=== PATIENT | female | born 1975 | race Caucasian/White ===

== ENCOUNTER 2020-04-22 10:09 | Emergency (ER) | payer OTHER, SELFPAY ==
[2020-04-22 10:25] VITALS: BP 149/73; PULSE 64; RESP 16; TEMP 37.1; O2SAT 99
--- NOTE | 2020-04-22 10:30 | ED.SKABFB ---
HPI - Skin/Abscess/Foreign Bdy General Chief complaint: Skin/Abscess/Foreign Body Stated complaint: itching Time Seen by Provider: 04/22/20 10:40 Source: patient Mode of arrival: ambulatory Limitations: no limitations History of Present Illness HPI narrative: 44 year old female accompanied by daughter with similar rash presents to express care with 2 day duration of red scattered rash on abdomen and neck. She denies any change in laundry soaps, bath soaps, lotions, food or medications. Patient has red raised scattered rash on abdomen and neck, no linear pattern or any vesicles noted. Patient states that it has been really hot and has only one window air conditioner so all 4 in family have been sleeping in same bed. Patient states that they do have a cat in the house. MD complaint: rash Onset (ago): day(s) (2) Tetanus up to date: yes Location: neck and chest (abdomen) Severity: mild Quality: pruritic Relieving factors: topical medication and medication Exacerbating factors: other (heat) Context: none Associated symptoms: denies other symptoms Treatments prior to arrival: Benadryl and other (Calamine lotion) Related Data Home Medications Medication Instructions Recorded Confirmed buspirone 10 mg PO BID 04/22/20 04/22/20 cetirizine 10 mg PO DAILY 04/22/20 04/22/20 ergocalciferol (vitamin D2) 1,250 mcg PO WEEKLY 04/22/20 04/22/20 ferrous sulfate 325 mg PO DAILY 04/22/20 04/22/20 fluoxetine 40 mg PO DAILY 04/22/20 04/22/20 hydroxyzine HCl 25 mg PO BID 04/22/20 04/22/20 lisinopril 10 mg PO DAILY 04/22/20 04/22/20 losartan-hydrochlorothiazide 1 tablet PO DAILY 04/22/20 04/22/20 lovastatin 40 mg PO DAILY 04/22/20 04/22/20 metformin 500 mg PO BID 04/22/20 04/22/20 prazosin 2 mg PO HS 04/22/20 04/22/20 sertraline 100 mg PO DAILY 04/22/20 04/22/20 topiramate 25 mg PO DAILY 04/22/20 04/22/20 trazodone 50 mg PO DAILY 04/22/20 04/22/20 Allergies Allergy/AdvReac Type Severity Reaction Status Date / Time amoxicillin Allergy Unknown Unknown Verified 04/22/20 10:44 ibuprofen Allergy Unknown Unknown Verified 04/22/20 10:44 Penicillins Allergy Unknown Unknown Verified 04/22/20 10:44 Review of Systems Review of Systems: Narrative: CONSTITUTIONAL: Denies fever, chills, or sweats. EYES: Denies visual changes, redness, or discharge. ENT: Denies rhinorrhea, congestion, sore throat, or otalgia. CARDIOVASCULAR: Denies chest pain, palpitations, or edema. RESPIRATORY: Denies cough or dyspnea. GASTROINTESTINAL: Denies abdominal pain, nausea, vomiting, or diarrhea. GENITOURINARY: Denies dysuria or hematuria. SKIN: Positive rash or itching to abdomen and neck. MUSCULOSKELETAL: Denies back pain, joint pain, or myalgia. NEUROLOGIC: Denies headache, numbness, or weakness. PSYCHIATRIC: Denies anxiety or depression. All systems reviewed & are unremarkable except as noted in HPI and below PMFSH Past Medical History Medical History (Updated 04/23/20 @ 15:30 by Kacey Gonzalez NP) Asthma Depression Diabetes Elevated lipids GERD (gastroesophageal reflux disease) Hypertension Migraines Surgical History Surgical History (Updated 04/23/20 @ 15:26 by Kacey Gonzalez NP) H/O tubal ligation Hx of cholecystectomy Previous section Family History Family History (Updated 05/13/16 @ 23:19 by DOCTOR UNKNOWN) Mother Hypertension Family history of diabetes mellitus in first degree relative Family history of heart disease in male family member before age 55 Social History Social History (Updated 04/23/20 @ 15:26 by Kacey Gonzalez NP) Smoking status: Never smoker Alcohol intake: never Living arrangements: with family Gender identity (if verbalized by the patient): Female Comments At time of signature, agree with nursing past medical, surgical, social and family history. There is no relevant family history pertinent to the presenting complaint Exam Narrative: Exam Narrative: GENERAL: Well-appearing, well-nourishe
== END 2020-04-22 11:00 | disposition home or self-care (01) ==
PROVIDERS: Emergency Provider Registered Nurse; PCP Internal Medicine
DX: L25.9 Unspecified contact dermatitis, unspecified cause (principal); J45.909 Unspecified asthma, uncomplicated; F32.9 Major depressive disorder, single episode, unspecified; E11.9 Type 2 diabetes mellitus without complications; E78.5 Hyperlipidemia, unspecified; K21.9 Gastro-esophageal reflux disease without esophagitis; I10 Essential (primary) hypertension
CPT/HCPCS: 99213; G0463

== ENCOUNTER 2023-10-03 13:18 | Emergency (ER) | payer OTHER, SELFPAY ==
[2023-10-03 13:30] VITALS: BP 142/79; PULSE 67; RESP 18; TEMP 36.2; O2SAT 95
--- NOTE | 2023-10-03 14:30 | ED.GENADULT ---
HPI - General Adult General Chief complaint: Upper Respiratory Infection Stated complaint: throat Source: patient Mode of arrival: ambulatory Limitations: no limitations History of Present Illness HPI narrative: Patient presents for evaluation of sick symptoms that started last night. Symptoms include sore throat, chest congestion, chills and headache. No fever, nausea, vomiting or diarrhea. She has been taking Tylenol for symptoms. She does not smoke. Her daughter is being evaluated here for similar symptoms. She has an underlying history of asthma and obstructive sleep apnea. States home BS 120-130's. She uses her bipap as directed. Related Data Home Medications Medication Instructions Recorded Confirmed buspirone 10 mg tablet 10 mg PO BID 04/22/20 04/22/20 cetirizine 10 mg tablet 10 mg PO DAILY 04/22/20 04/22/20 ergocalciferol (vitamin D2) 1,250 1,250 mcg PO WEEKLY 04/22/20 04/22/20 mcg (50,000 unit) capsule ferrous sulfate 325 mg (65 mg 325 mg PO DAILY 04/22/20 04/22/20 iron) tablet fluoxetine 40 mg capsule 40 mg PO DAILY 04/22/20 04/22/20 hydroxyzine HCl 25 mg tablet 25 mg PO BID 04/22/20 04/22/20 lisinopril 10 mg tablet 10 mg PO DAILY 04/22/20 04/22/20 losartan 50 mg-hydrochlorothiazide 1 tablet PO DAILY 04/22/20 04/22/20 12.5 mg tablet lovastatin 40 mg tablet 40 mg PO DAILY 04/22/20 04/22/20 metformin 500 mg tablet 500 mg PO BID 04/22/20 04/22/20 prazosin 2 mg capsule 2 mg PO HS 04/22/20 04/22/20 sertraline 100 mg tablet 100 mg PO DAILY 04/22/20 04/22/20 topiramate 25 mg tablet 25 mg PO DAILY 04/22/20 04/22/20 trazodone 50 mg tablet 50 mg PO DAILY 04/22/20 04/22/20 Allergies Allergy/AdvReac Type Severity Reaction Status Date / Time amoxicillin Allergy Unknown Unknown Verified 10/03/23 13:47 ibuprofen Allergy Unknown Unknown Verified 10/03/23 13:47 Penicillins Allergy Unknown Unknown Verified 10/03/23 13:47 Review of Systems Review of Systems: CONSTITUTIONAL: Reports chills. Denies fever or sweats. EYES: Denies visual changes, redness, or discharge. ENT: Reports sore throat. Denies rhinorrhea, congestion, or otalgia. CARDIOVASCULAR: Denies chest pain, palpitations, or edema. RESPIRATORY: Reports chest congestion. Denies cough or dyspnea. GASTROINTESTINAL: Denies abdominal pain, nausea, vomiting, or diarrhea. GENITOURINARY: Denies dysuria or hematuria. SKIN: Denies rash or itching. MUSCULOSKELETAL: Denies back pain, joint pain, or myalgia. NEUROLOGIC: Reports headache. Denies numbness, dizziness, or weakness. PSYCHIATRIC: Denies anxiety or depression. [facility] Past Medical History Medical History Asthma Depression Diabetes Elevated lipids GERD (gastroesophageal reflux disease) Hypertension Migraines Surgical History Surgical History H/O tubal ligation Hx of cholecystectomy Previous section Family History Family History Mother Hypertension Family history of diabetes mellitus in first degree relative Family history of heart disease in male family member before age 55 Social History Social History Smoking status: Never smoker Alcohol intake: never Living arrangements: with family Gender identity (if verbalized by the patient): Female Exam Narrative: GENERAL: Well-appearing, well-nourished, and in no acute distress. HEAD: Normocephalic, atraumatic. EYES: PERRLA and EOMI. ENT: Nares clear, no rhinorrhea or epistaxis. Mucous membranes moist. Oropharynx without tonsillar hypertrophy exudate or other lesions. Bilateral TMs pearly milton nonbulging NECK: Supple. No adenopathy or masses. No carotid bruits or JVD CHEST: Clear to auscultation. No respiratory distress. No wheezes rales or rhonchi HEART: Regular rate and rhythm.
== END 2023-10-03 14:33 | disposition home or self-care (01) ==
PROVIDERS: Emergency Provider Nurse Practitioner; PCP Internal Medicine
DX: B34.9 Viral infection, unspecified (principal); I10 Essential (primary) hypertension; E11.9 Type 2 diabetes mellitus without complications; Z20.822 Contact with and (suspected) exposure to COVID-19
CPT/HCPCS: 87081; 87426; 87804; 87880; 99203; C9803; G0463